=== PATIENT | female | born 1970 | race Caucasian/White ===

== ENCOUNTER 2018-10-09 21:48 | Emergency (ER) | payer MEDICAID ==
[~2018-10-09] VITALS: Ht 170.2 cm; Wt 69.0 kg
[2018-10-10 00:20] VITALS: BP 105/67
== END 2018-10-10 01:55 | disposition left against medical advice (07) ==
LOC: ED 23:39
DX: R05 Cough (principal); F31.9 Bipolar disorder, unspecified; Z72.9 Problem related to lifestyle, unspecified; Z75.9 Unspecified problem related to medical facilities and other health care; Z91.14 Patient's other noncompliance with medication regimen; Z63.8 Other specified problems related to primary support group
CPT/HCPCS: 36415; 71045; 80053; 80307; 81003; 85025; 93005; 99284

== ENCOUNTER 2018-10-10 17:09 | Emergency (ER) | payer MEDICAID ==
[~2018-10-10] VITALS: Ht 167.6 cm; Wt 70.1 kg
[2018-10-10 17:44] VITALS: BP 115/58
== END 2018-10-10 20:23 | disposition home or self-care (01) ==
LOC: ED 17:58
DX: T14.8XXA Other injury of unspecified body region, initial encounter (principal); R10.2 Pelvic and perineal pain; G89.29 Other chronic pain; Z87.891 Personal history of nicotine dependence; R04.0 Epistaxis; X58.XXXA Exposure to other specified factors, initial encounter; Y93.89 Activity, other specified; Y92.89 Other specified places as the place of occurrence of the external cause; Y99.8 Other external cause status
CPT/HCPCS: 36415; 76830; 84702; 85610; 85730; 87389; 99284

== ENCOUNTER 2018-10-11 08:39 | Emergency (ER) | payer MEDICAID ==
[~2018-10-11] VITALS: Ht 167.6 cm; Wt 71.8 kg
[2018-10-11 08:46] VITALS: BP 106/56
== END 2018-10-11 11:04 | disposition home or self-care (01) ==
LOC: ED 10:05
DX: F30.9 Manic episode, unspecified (principal); R11.2 Nausea with vomiting, unspecified; R19.7 Diarrhea, unspecified
CPT/HCPCS: 36415; 74021; 80053; 80178; 83690; 84703; 85025; 99284; Q0162